=== PATIENT | male | born 1945 | race Caucasian/White ===

== ENCOUNTER 2016-12-09 11:50 | Inpatient (IN) | payer OTHER, MEDICAID ==
[2016-12-09] MEDS ORDERED: NS 1,000 ML IV ONE (12:10)
--- NOTE | 2016-12-09 12:12 | EDPHY ---
H & P Time Seen by Provider: 12/09/16 12:07 HPI/ROS: CHIEF COMPLAINT: Altered mental status, hyponatremia HISTORY OF PRESENT ILLNESS: 71-year-old male with a history of autoimmune LG1- 1 encephalitis presents with altered mental status and hyponatremia. He has been losing his balance more often recently. He has fallen multiple times in the past few days but denies significant injuries from these falls. He is also more confused than usual, so laboratory tests were ordered for this morning. Serum sodium level was 116. He has been drinking 4x32oz bottles of water daily for quite some time. He was diagnosed with autoimmune encephalitis in April 2016 and received plasmapheresis. He was much better after plasmapheresis and has been doing fairly well overall. He denies headache, dizziness, weakness, chest pain, neck pain, or other complaints. 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 Social History: Lives at [facility]. Smoking Status: Former smoker Physical Exam: General Appearance: Alert, nontoxic-appearing Eyes: Pupils equal and round, no conjunctival pallor or injection ENT, Mouth: Mucous membranes moist Neck: Normal inspection Respiratory: Lungs are clear to auscultation Cardiovascular: Regular rate and rhythm Gastrointestinal: Abdomen is soft and non-tender Neurological: Alert, moves all extremities, nonfocal exam Skin: Warm and dry Extremities: ecchymosis on left forearm, abrasions on left upper arm and shoulder, abrasions over both knees Psychiatric: Flat affect Constitutional: Initial Vital Signs Temperature (C) 36.9 C 12/09/16 11:50 Heart Rate 75 12/09/16 11:50 Respiratory Rate 18 12/09/16 11:50 Blood Pressure 171/110 H 12/09/16 11:50 O2 Sat (%) 94 12/09/16 11:50 O2 Delivery Mode Room Air Allergies/Adverse Reactions: chlorhexidine Allergy (Verified 04/18/16 16:31) Home Medications: Medication Instructions Recorded Gabapentin [Neurontin 300 MG (*)] 300 mg PO BID 04/18/16 Phenytoin Sodium Extended 300 mg PO HS 04/18/16 [Dilantin (*)] Tamsulosin HCl [Flomax 0.4 MG (*)] 0.4 mg PO HS 04/18/16 Cyanocobalamin [Vitamin B12 (*)] 1,000 mcg PO DAILY #0 tab 04/29/16 Docusate Sodium [Colace 100 MG (*)] 100 mg PO BID PRN 12/09/16 Lacosamide [Vimpat] 100 mg PO BID 12/09/16 Sodium Chloride [Salt Tablet] 2,000 mg PO TIDMEAL 12/09/16 Medical Decision Making ED Course/Re-evaluation: I received a phone call from Dr. Chris Cedeno prior to this patient's arrival. Plan is to admit the patient for plasmapheresis. Laboratory studies reveal severe hyponatremia. No IV fluids given in the emergency department. The patient's neurologic exam remained unchanged throughout his emergency department stay. 1224: Consulted with Diana De La Rosa, hospitalist. She accepts admission for Dr. Au to SDU. Differential Diagnosis: Differential diagnosis includes does is not limited to CVA/TIA, dehydration, seizure, hypoglycemia, infection. - Data Points Medications Given: Discontinued Medications Sodium Chloride (Ns) 1,000 mls @ 0 mls/hr IV ONCE ONE PRN Reason: Wide Open Stop: 12/09/16 12:11 Last Admin: 12/09/16 12:24 Dose: 1,000 mls Sodium Chloride (Sodium Chloride 3%) 500 mls @ 50 mls/hr IV CONT GUILLERMO Stop: 06/07/17 16:59 Last Admin: 12/10/16 04:36 Dose: 500 mls Departure - Departure Disposition: [facility] Inpatient Acute Clinical Impression: Hyponatremia Altered mental status Qualifiers: Altered mental status type: unspecified Qualified Code(s): R41.82 - Altered mental status, unspecified Condition: Fair Report Scribed for: Annabelle Thomas Report Scribed by: Ilya Alvares Date of Report: 12/09/16 Time of Report: 12:17 Physician Review and Approval Statement: 12/09/16 12:17 Portions of this note were transcribed by a medical writer. I personally performed a history, physical exam, medical decision making, and confirmed accuracy of information the transcribed note.
[2016-12-09 12:35] LABS: ANION GAP 9 mEq/L (8-16); CALCIUM 8.8 mg/dL (8.5-10.4); CARBON DIOXIDE 22 mEq/l (22-31); CHLORIDE 84 mEq/L (97-110); CREATININE 0.7 mg/dL (0.7-1.3); GLOMERULAR FILTRATION RATE > 60; GLUCOSE 95 mg/dL (70-100); POTASSIUM 4.9 mEq/L (3.5-5.2)
[2016-12-09 12:41] LABS: SODIUM 115 mEq/L (134-144)
[2016-12-09 13:14] LABS: HEMATOCRIT 36.4 % (40.0-51.0); HEMOGLOBIN 14.7 g/dL (13.7-17.5); MEAN CELL HEMOGLOBIN 34.9 pg (27.9-34.1); MEAN CELL VOLUME 86.5 fL (81.5-99.8); MEAN PLATELET VOLUME 8.9 fL (8.7-11.7); PLATELET COUNT 211 10^3/uL (150-400); RED BLOOD CELL COUNT 4.21 10^6/uL (4.40-6.38)
[2016-12-09 13:15] LABS: ABSOLUTE IMMATURE GRANULOCYTES 0.11 10^3/uL (0.00-0.10); ADD DIFF? NO; MEAN CELL HEMOGLOBIN CONCENTR. 40.4 g/dL (32.4-36.7)
[2016-12-09 13:16] LABS: ADD MORPH? YES; ADD SCAN? NO
--- NOTE | 2016-12-09 13:46 | CPEKG ---
Heart Rate: 82 RR Interval: 732 P-R Interval: 192 QRSD Interval: 98 QT Interval: 392 QTC Interval: 458 P [place]: 34 QRS [place]: -59 T Wave [place]: 54 EKG Severity - ABNORMAL ECG - EKG Impression: SINUS RHYTHM EKG Impression: LEFT ANTERIOR FASCICULAR BLOCK Electronically Signed By: Annabelle Thomas 09-Dec-2016 15:25:14
[2016-12-09 13:47] LABS: MACROCYTES 1+; POLYCHROMASIA 1+
[2016-12-09 13:48] LABS: PLATELET ESTIMATE ADEQUATE (ADEQ)
[2016-12-09] MEDS ORDERED: DOCUSATE SODIUM 100 MG CAP PO PRN (15:14)
[2016-12-09 16:21] LABS: ANION GAP 8 mEq/L (8-16); CALCIUM 8.4 mg/dL (8.5-10.4); CARBON DIOXIDE 22 mEq/l (22-31); CHLORIDE 83 mEq/L (97-110); CREATININE 0.6 mg/dL (0.7-1.3); GLOMERULAR FILTRATION RATE > 60; GLUCOSE 90 mg/dL (70-100); POTASSIUM 4.6 mEq/L (3.5-5.2)
[2016-12-09 16:34] LABS: SODIUM 113 mEq/L (134-144)
[2016-12-09] MEDS: SODIUM CHLORIDE 1,000 MG TAB PO SCH (17:04)
[2016-12-09] MEDS ORDERED: ALTEPLASE 2 MG VIAL IVP PRN (17:05)
--- NOTE | 2016-12-09 17:11 | PDGENHP ---
History and Physical History and Physical: HISTORY AND PHYSICAL CC:Confusion and loss of balance HISTORY: I am getting the patient's history from the patient himself and he does have some degree of confusion and so there may be some limitations in the accuracy. I am also getting some of the history through the ER staff who spoke with the patient's . This patient is brought into the hospital from [facility] today because of confusion and gait instability and balance issues with falls. These are actually somewhat chronic symptoms for him as best I can understand he has had problems with these for approximately year and half. However the have become much more prominent recently. 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 As the patient had been having increasing symptoms his spoke with Dr. Cedeno who was considering transferring the patient down to the [facility] for further plasmapheresis therapy. However simultaneously the patient had some blood tests drawn at the nursing facility and came back with a sodium of 116. it is reported to me that he most recently had a sodium of 132 sometime during October but I do not have any confirmation of this or the date. The patient denies any headaches. Tells me that he has been having a lot of balance issues where he suddenly falls. He does not recall when he last had any seizures but thinks he may have had 1 a month or 2 ago. He does mention that he thinks he may have been more confused recently than he usually is. He is unable to give me details around this issue. He does tell me that he is quite aware that he is only supposed to drink about a qt of water daily but he drinks at least 2-3 quarts that he is aware of. He does not endorse any excessive thirst or polyuria. ROS: A comprehensive 10 system review revealed no other significant findings PAST MEDICAL HISTORY: Seizure disorder on antiepileptic medicines Autoimmune encephalitis Hyponatremia, previously diagnosed as SIADH closed head injuries related to falls from balance and seizure issues FAMILY MEDICAL HISTORY: Patient is unaware of any significant medical illnesses in the family SOCIAL HISTORY: but the patient is currently living at local nursing facility MEDICATIONS: The patients list has been reconciled by our clinical pharmacist in the EMR. I have reviewed the list and ordered appropriate medicines. PHYSICAL EXAMINATION: Vital Signs: initially some systolic hypertension that is spontaneously resolved here, otherwise stable without fever Grain Loader: sinus rhythm Examination: General: alert, relaxed, talkative Neurologic: he has normal attention span and normal affect, is oriented to person place situation day date month and here. He clearly however has some memory issues around certain parts of his medical condition. 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 Upon arrival to the ICU I had this rechecked and is now at 1:13 a.m., he had received 1 L of normal saline in the ER in between. Urine sodium 16 Normal renal function RADIOLOGY STUDIES: none so far 12 LEAD EKG DONE IN THE ER, my review of the tracing interpretation: Sinus rhythm with left anterior fascicular block ASSESSMENT: -SEVERE HYPONATREMIA - currently low urine sodium argues strongly against SIADH as a cause. I suspect that it is due to a combination of poor intake of salt as well as excessive water intake. I suspect that he has been taking in more water than he tells me of. It also sounds like he does not eat a very healthy diet and probably has poor salt intake in his diet. He is prescribed 2 g sodium tablets 4 times daily, but I wonder if he is taking these. His mentions that she found 1 his Vimpat tablets on the floor this morning -GAIT INSTABILITY, DISEQUILIBRIUM AND FALLS WITHOUT APPARENT SERIES INJURY -AUTOIMMUNE ENCEPHALOPATHY AND HISTORY OF SEIZURE DISORDER ON MEDICINES - MODERATE DVT RISK PLANS: - at this point with his sodium falling after some normal saline and with a low urine sodium level will add some 3% saline in IV which will require a PICC line -Oral fluid restriction -Continue his oral sodium supplement -Will need close monitoring of the serum sodium with goal rate no more than 10 per 24 hour increase in sodium -Continue his usual seizure medicines -Fall risk precautions -He will need much closer supervision in the outpatient setting in the future with close monitoring of sodium I have reviewed the patient's case in detail with Dr. Chris Cedeno I have reviewed the patient's past medical records as part of this assessment, including previous hospital admission records and laboratory data
[2016-12-09] MEDS ORDERED: ACETAMINOPHEN 325 MG TAB PO PRN (17:26)
[2016-12-09] MEDS ORDERED: ZOLPIDEM TARTRATE 5 MG TAB PO PRN (17:26)
[2016-12-09] MEDS ORDERED: ONDANSETRON 4 MG/2 ML VIAL IVP PRN (17:26)
[2016-12-09] MEDS: SODIUM Cl 3% 500 ML IV SCH (18:02)
[2016-12-09] MEDS: TAMSULOSIN HCL 0.4 MG CAP PO SCH (20:30)
[2016-12-09] MEDS: LACOSAMIDE 50 MG TAB PO SCH (20:30)
[2016-12-09] MEDS: PHENYTOIN SODIUM EXTENDED 100 MG CAP PO SCH (20:30)
[2016-12-09] MEDS: GABAPENTIN 300 MG CAP PO SCH (20:30)
[2016-12-09] MEDS ORDERED: NON-FORMULARY NEW DRUG (Lacosamide [Vimpat] 100 MG) PO SCH (21:00)
[2016-12-09 21:30] LABS: ANION GAP 5 mEq/L (8-16); CALCIUM 8.1 mg/dL (8.5-10.4); CARBON DIOXIDE 24 mEq/l (22-31); CHLORIDE 86 mEq/L (97-110); CREATININE 0.6 mg/dL (0.7-1.3); GLOMERULAR FILTRATION RATE > 60; GLUCOSE 116 mg/dL (70-100); POTASSIUM 4.3 mEq/L (3.5-5.2)
[2016-12-09 21:38] LABS: SODIUM 115 mEq/L (134-144)
[2016-12-10 01:11] LABS: ANION GAP 4 mEq/L (8-16); CARBON DIOXIDE 24 mEq/l (22-31); CHLORIDE 91 mEq/L (97-110); CREATININE 0.6 mg/dL (0.7-1.3); GLOMERULAR FILTRATION RATE > 60; GLUCOSE 95 mg/dL (70-100); POTASSIUM 4.4 mEq/L (3.5-5.2)
[2016-12-10 01:14] LABS: SODIUM 119 mEq/L (134-144)
[2016-12-10] MEDS: SODIUM Cl 3% 500 ML IV SCH (04:36)
[2016-12-10 05:01] LABS: ANION GAP 4 mEq/L (8-16); CALCIUM 7.9 mg/dL (8.5-10.4); CARBON DIOXIDE 25 mEq/l (22-31); CHLORIDE 92 mEq/L (97-110); CREATININE 0.6 mg/dL (0.7-1.3); GLOMERULAR FILTRATION RATE > 60; GLUCOSE 90 mg/dL (70-100); POTASSIUM 4.1 mEq/L (3.5-5.2); SODIUM 121 mEq/L (134-144)
[2016-12-10] MEDS: GABAPENTIN 300 MG CAP PO SCH ×2 (08:04→20:48)
[2016-12-10] MEDS: SODIUM CHLORIDE 1,000 MG TAB PO SCH ×3 (08:04→18:23)
[2016-12-10] MEDS: CYANO/VITAMIN B12 1000 MCG TAB PO SCH (08:04)
[2016-12-10] MEDS: LACOSAMIDE 50 MG TAB PO SCH ×2 (08:04→20:48)
[2016-12-10] MEDS: ENOXAPARIN 40 MG/0.4 ML SYR SC SCH (08:05)
[2016-12-10 09:06] LABS: ANION GAP 6 mEq/L (8-16); CALCIUM 8.1 mg/dL (8.5-10.4); CARBON DIOXIDE 25 mEq/l (22-31); CHLORIDE 92 mEq/L (97-110); CREATININE 0.5 mg/dL (0.7-1.3); GLOMERULAR FILTRATION RATE > 60; GLUCOSE 86 mg/dL (70-100); POTASSIUM 4.5 mEq/L (3.5-5.2); SODIUM 123 mEq/L (134-144)
--- NOTE | 2016-12-10 10:27 | HOSPPROG ---
Hospitalist Progress Note Assessment/Plan: DIAGNOSES: -SEVERE HYPONATREMIA - currently low urine sodium argues strongly against SIADH as a cause. I suspect that it is due to a combination of poor intake of salt as well as excessive water intake. I suspect that he has been taking in more water than he tells me of. It also sounds like he does not eat a very healthy diet and probably has poor salt intake in his diet. He is prescribed 2 g sodium tablets 4 times daily, but I wonder if he is taking these. His mentions that she found 1 his Vimpat tablets on the floor this morning -GAIT INSTABILITY, DISEQUILIBRIUM AND FALLS WITHOUT APPARENT SERIES INJURY -AUTOIMMUNE ENCEPHALOPATHY AND HISTORY OF SEIZURE DISORDER ON MEDICINES -MODERATE DVT RISK -L HIP PAIN AFTER FALL Overall appearing stable, with nothing to suggest demyelinating syndrome or other acute neurologic injury His Na rise is appropriate over the first nearly 24 hours, but will slow down replacement at this time and continue to follow very closely Need to eval L hip pain though doubt fx Seen on multidisc rounds Reviewed in detail with Dr Lowry today PLANS: -stop hypertonic saline now -continue oral Na replacement and oral fluid restriction -continue q 4 hr Na checks for the moment, can likely decrease later today -xrays of L hip -fall risk precautions -DVT proph -OT PT -he will need better supervision of oral fluid intake out of hospital SUBJECTIVE: little change in symptoms though feels he may be a bit clearer in thinking does mention he has some L hip pain with movement today there have been no seizures noted 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, 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 Exam: alert, at his baseline mentation and interactions, speech; no focal motor changes skin warm dry color ok resps not labored lungs clear BSs heart regular abd soft nondistended nontender, bowel sounds present limbs warm, no edema iv site ok Lab: Na up to 123 from low of 113 Objective: Vital Signs Temp Pulse Resp BP Pulse Ox 36.4 C 87 18 118/60 92 12/10/16 08:00 12/10/16 10:00 12/10/16 10:00 12/10/16 10:00 12/10/16 10:00 Laboratory Results 12/09/16 Unknown 12/10/16 08:01 12/09/16 12/10/16 12/11/16 06:59 06:59 06:59 Intake Total 1216 Output Total 1150 Balance 66 ICD10 Worksheet Patient Problems: Problems Problem Status Onset Altered mental status Acute Hyponatremia Acute Hyponatremia Acute Seizure disorder Acute
[2016-12-10 12:43] LABS: ANION GAP 4 mEq/L (8-16); CARBON DIOXIDE 25 mEq/l (22-31); CHLORIDE 95 mEq/L (97-110); CREATININE 0.6 mg/dL (0.7-1.3); GLOMERULAR FILTRATION RATE > 60; GLUCOSE 99 mg/dL (70-100); POTASSIUM 4.9 mEq/L (3.5-5.2); SODIUM 124 mEq/L (134-144)
[2016-12-10 17:02] LABS: ANION GAP 4 mEq/L (8-16); CARBON DIOXIDE 27 mEq/l (22-31); CHLORIDE 94 mEq/L (97-110); CREATININE 0.5 mg/dL (0.7-1.3); GLOMERULAR FILTRATION RATE > 60; GLUCOSE 82 mg/dL (70-100); POTASSIUM 4.4 mEq/L (3.5-5.2); SODIUM 125 mEq/L (134-144)
[2016-12-10 20:18] LABS: ANION GAP 4 mEq/L (8-16); CALCIUM 8.1 mg/dL (8.5-10.4); CARBON DIOXIDE 26 mEq/l (22-31); CHLORIDE 95 mEq/L (97-110); CREATININE 0.5 mg/dL (0.7-1.3); GLOMERULAR FILTRATION RATE > 60; GLUCOSE 135 mg/dL (70-100); POTASSIUM 4.5 mEq/L (3.5-5.2); SODIUM 125 mEq/L (134-144)
[2016-12-10] MEDS: PHENYTOIN SODIUM EXTENDED 100 MG CAP PO SCH (20:48)
[2016-12-10] MEDS: TAMSULOSIN HCL 0.4 MG CAP PO SCH (20:48)
[2016-12-11 04:25] LABS: ANION GAP 5 mEq/L (8-16); CALCIUM 8.2 mg/dL (8.5-10.4); CARBON DIOXIDE 26 mEq/l (22-31); CHLORIDE 97 mEq/L (97-110); CREATININE 0.5 mg/dL (0.7-1.3); GLOMERULAR FILTRATION RATE > 60; GLUCOSE 72 mg/dL (70-100); POTASSIUM 4.4 mEq/L (3.5-5.2); SODIUM 128 mEq/L (134-144)
[2016-12-11] MEDS: SODIUM CHLORIDE 1,000 MG TAB PO SCH ×3 (08:38→18:01)
[2016-12-11] MEDS: CYANO/VITAMIN B12 1000 MCG TAB PO SCH (08:38)
[2016-12-11] MEDS: LACOSAMIDE 50 MG TAB PO SCH ×2 (08:39→21:53)
[2016-12-11] MEDS: ENOXAPARIN 40 MG/0.4 ML SYR SC SCH (08:39)
[2016-12-11] MEDS: GABAPENTIN 300 MG CAP PO SCH ×2 (08:39→21:53)
--- NOTE | 2016-12-11 09:50 | HOSPPROG ---
Hospitalist Progress Note Assessment/Plan: DIAGNOSES: -SEVERE HYPONATREMIA - currently low urine sodium argues strongly against SIADH as a cause. I suspect that it is due to a combination of poor intake of salt as well as excessive water intake. I suspect that he has been taking in more water than he tells me of. It also sounds like he does not eat a very healthy diet and probably has poor salt intake in his diet. He is prescribed 2 g sodium tablets 4 times daily, but I wonder if he is taking these. His mentions that she found 1 his Vimpat tablets on the floor this morning -GAIT INSTABILITY, DISEQUILIBRIUM AND FALLS WITHOUT APPARENT SERIES INJURY -AUTOIMMUNE ENCEPHALOPATHY AND HISTORY OF SEIZURE DISORDER ON MEDICINES -MODERATE DVT RISK -L HIP PAIN AFTER FALL Na improving nicely without signs of demyelinating syndrome He remains quite debilitated by confusion and dysequilibrium and gait instability I will review with neurology. My question for neurology is what would be the indications to consider further plasmapheresis, and would that need to be done at [facility]. Apparently before the low sodium was identified Dr Cedeno was planning possible referral to that hospital for treatment. 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 Exam: alert, at his baseline mentation and interactions, speech; no focal motor changes skin warm dry color ok resps not labored lungs clear BSs heart regular abd soft nondistended nontender, bowel sounds present limbs warm, no edema iv site ok Lab: Na at 128 now Objective: Vital Signs Temp Pulse Resp BP Pulse Ox 36.3 C 63 17 133/74 H 94 12/11/16 08:00 12/11/16 08:00 12/11/16 08:00 12/11/16 08:00 12/11/16 08:00 Laboratory Results 12/09/16 Unknown 12/11/16 04:05 12/10/16 12/11/16 12/12/16 06:59 06:59 06:59 Intake Total 1216 1107 Output Total 1150 500 Balance 66 607 ICD10 Worksheet Patient Problems: Problems Problem Status Onset Altered mental status Acute Hyponatremia Acute Hyponatremia Acute Seizure disorder Acute
[2016-12-11] MEDS: PHENYTOIN SODIUM EXTENDED 100 MG CAP PO SCH (21:54)
[2016-12-11] MEDS: TAMSULOSIN HCL 0.4 MG CAP PO SCH (21:54)
[2016-12-12 03:40] VITALS: O2SAT 95
[2016-12-12 04:28] LABS: ALANINE AMINOTRANSFERASE 69 IU/L (21-72); ALBUMIN 3.2 g/dL (3.5-5.0); ALKALINE PHOSPHATASE 108 IU/L (38-126); ANION GAP 2 mEq/L (8-16); ASPARTATE AMINOTRANSFERASE 121 IU/L (17-59); BILIRUBIN,TOTAL 0.4 mg/dL (0.1-1.4); CALCIUM 8.3 mg/dL (8.5-10.4); CARBON DIOXIDE 26 mEq/l (22-31); CHLORIDE 100 mEq/L (97-110); CREATININE 0.5 mg/dL (0.7-1.3); GLOMERULAR FILTRATION RATE > 60; GLUCOSE 77 mg/dL (70-100); POTASSIUM 4.6 mEq/L (3.5-5.2); SODIUM 128 mEq/L (134-144); TOTAL PROTEIN 5.5 g/dL (6.3-8.2)
[2016-12-12] MEDS: CYANO/VITAMIN B12 1000 MCG TAB PO SCH (09:15)
[2016-12-12] MEDS: GABAPENTIN 300 MG CAP PO SCH (09:15)
[2016-12-12] MEDS: SODIUM CHLORIDE 1,000 MG TAB PO SCH ×2 (09:15→13:13)
[2016-12-12] MEDS: ENOXAPARIN 40 MG/0.4 ML SYR SC SCH (09:16)
[2016-12-12] MEDS: LACOSAMIDE 50 MG TAB PO SCH (09:16)
--- NOTE | 2016-12-12 10:12 | GCON ---
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 I spok e to his last Fidencio, and he had a series of seizures, but those have ceased, and he had very l ow sodium, which has been corrected, and he is moving much more toward his baseline. I spoke to him today, he is close to the baseline I recognize. I do not believe he needs to go into plasma exchan ge right now, and continued management of his medical problem with outpatient followup will be appro priate. I am happy to review further details regarding this case, and put in a call to his to confirm everything, but he is stable. /[id number]/MODL
--- NOTE | 2016-12-12 10:27 | PDIAF ---
- Diagnosis Diagnosis: HYPONATREMIA Code Status: Full Code - Medication Management Discharge Medications: Medications to Continue on Transfer Gabapentin [Neurontin 300 MG (*)] 300 mg PO BID 04/18/16 [Last Taken 12/09/16 08 :00] Phenytoin Sodium Extended [Dilantin (*)] 300 mg PO HS 04/18/16 [Last Taken Unknown] Tamsulosin HCl [Flomax 0.4 MG (*)] 0.4 mg PO HS 04/18/16 [Last Taken Unknown] Cyanocobalamin [Vitamin B12 (*)] 1,000 mcg PO DAILY #0 tab 04/29/16 [Last Taken 12/09/16] Docusate Sodium [Colace 100 MG (*)] 100 mg PO BID PRN 12/09/16 [Last Taken Unknown] Lacosamide [Vimpat] 100 mg PO BID 12/09/16 [Last Taken 12/09/16 08:00] Sodium Chloride [Salt Tablet] 2,000 mg PO TIDMEAL 12/09/16 [Last Taken 12/09/16 08:00] Discharge Medications: Refer to the Discharge Home Medication list for PRN reason. - Orders Services needed: Registered Nurse, Certified Ballet Professor, Master Quality Improvement Engineer Diet Recommendation: fluid restriction (use comment for amount) (1400 ml / 24 hours including ALL ORAL FLUIDS ) Diet Texture: Regular Texture Diet - Labs/Radiology BMP Date: 12/16/16 - Follow Up Care Current Providers and Referrals: Patient,NotPresent [Primary Care Provider] - As per Instructions
--- NOTE | 2016-12-12 10:35 | PDDCSUM ---
Discharge Summary Discharge Summary: DISCHARGE DIAGNOSES: -ACUTE ON CHRONIC SEVERE HYPONATREMIA, SYMPTOMATIC -MULTIPLE FALLS, CHRONIC GAIT INSTABILITY -ACUTE ON CHRONIC ENCEPHALOPATHY, MULTIFACTORIAL -CHRONIC AUTOIMMUNE ENCEPHALITIS, STABLE CONSULTANTS: [facility] HOSPITAL COURSE SUMMARY: This patient has a long history of autoimmune its encephalopathy and associated hyponatremia. He has been managed on oral fluid restriction with a total of 8 g of oral sodium supplements daily. He had a sodium checked in the low 130s in October of this year but this time came into the hospital because of worsening symptoms with his chronic confusion and disequilibrium. He was found have a sodium of 115 which actually decreased to 113 after he had been given some saline in the ER. He was admitted to intensive care unit. He had close monitoring of his glucose initially treated with some hypertonic saline and then switch back to his oral supplements. He was treated with oral fluid restriction of 1 L daily here. The patient did well with appropriate rise of sodium level and we have now up to 128. There has been no signs of demyelinating syndrome or other complications. He appears back to baseline with his neurologic examination and function as assessed by Dr. Cedeno who knows him well. At this point the patient is stable for transfer back to the nursing facility where he lives. He will need however better supervision regarding his oral fluid intake. The patient describes to me that he knows that he is supposed to be on a restricted fluid intake but that he does not follow that restriction and drinks few L of fluid per day. I am working with our social workers to contact the folks at the nursing facility to be CC with a cane due to arrange for better 5 supervision of this. PENDING TEST RESULTS: A repeat metabolic panel is ordered to be done 4 days from now at the nursing facility MEDICATION CHANGES: None FOLLOW-UP PLAN: With his primary care physician and with Dr. Cedeno at the nursing facility Greater than 35 minutes bedside and care coordination time today
[2016-12-12 12:56] VITALS: BP 117/61; PULSE 64; RESP 16
[2016-12-12 12:59] VITALS: TEMP 97.5
[2016-12-12] MEDS ORDERED: FAMOTIDINE 20 MG/NACL 50 ML IV SCH (21:00)
== END 2016-12-12 13:23 | DRG 640 ==
LOC: EDUNIT# → F2N 14:09
PROVIDERS: ADMIT Internal Medicine; ATTEND Internal Medicine
DX: E87.1 Hypo-osmolality and hyponatremia (principal); G93.49 Other encephalopathy; G04.90 Encephalitis and encephalomyelitis, unspecified; R29.6 Repeated falls; R26.9 Unspecified abnormalities of gait and mobility; G40.909 Epilepsy, unspecified, not intractable, without status epilepticus
CPT/HCPCS: 92523-GN; 97116-GP; 97161-GP; 97165-GO; 97530-GP; 97535-GO; C1751; G8978-GP-CJ; G8979-GP-CI; G8987-GO-CL; G8988-GO-CK; G9168-GN-CJ; G9169-GN-CI; J1650

== ENCOUNTER 2017-02-07 12:08 | Emergency (ER) | payer OTHER, MEDICAID ==
[2017-02-07 12:15] VITALS: TEMP 97.9
--- NOTE | 2017-02-07 12:39 | EDPHY ---
H & P Stated Complaint: spasms, hx of low sodium, similar symptoms Time Seen by Provider: 02/07/17 12:29 HPI/ROS: CHIEF COMPLAINT: Right arm tremulous, spasms HISTORY OF PRESENT ILLNESS: This is a 71-year-old male presenting to the emergency department ambulatory with walker assist. reports she has noticed "right upper extremity spasms or tremors this morning intermittently, then patient seems like he has altered mental status but then comes back to normal" states her concern is due to his history of autoimmune encephalitis and hyponatremia, that his sodium may be low again. denies any other complaints no chest pain or shortness of breath. REVIEW OF SYSTEMS: Constitutional: No fever, no chills. Eyes: No discharge. no blurred vision ENT: No sore throat. Cardiovascular: No chest pain, no palpitations. Respiratory: No cough, no shortness of breath. Gastrointestinal: No abdominal pain, no vomiting. Genitourinary: No hematuria. Musculoskeletal: No back pain. intermittent right arm tremors Skin: No rashes. Neurological: No headache. Source: Patient, Family, Old records - Personal History Current Tetanus/Diphtheria Vaccine: Unsure Current Tetanus Diphtheria and Acellular Pertussis (TDAP): Unsure Tetanus Vaccine Date: < 10 years - Medical/Surgical History Hx Asthma: No Hx Chronic Respiratory Disease: No Hx Diabetes: No Hx Cardiac Disease: No Hx Renal Disease: No Hx Cirrhosis: No Hx Alcoholism: No Hx HIV/AIDS: No Hx Splenectomy or Spleen Trauma: No Other PMH: seizures , appendectomy, limbic encephalitis,orthostatic hypotension, pneumonitis,lasik surgery left eye , cataracts now left eye, cataract removed R eye, hyponatremia - Social History Smoking Status: Former smoker - Physical Exam Exam: General Appearance: Alert, no distress. Eyes: Pupils equal and round no pallor or injection. ENT, Mouth: Mucous membranes moist. Respiratory: There are no retractions, lungs are clear to auscultation. Cardiovascular: Regular rate and rhythm. Gastrointestinal: Abdomen is soft and nontender, no masses, bowel sounds normal. Neurological: No focal deficits, answering questions appropriately. no seizure or fasciculations noted. ambulatory with steady gait Skin: Warm and dry, no rashes. healing abrasions to bilateral knees dressings intact Musculoskeletal: Neck is supple nontender. Extremities: symmetrical, full range of motion. healing abrasions to bilateral knees dressings intact Psychiatric: Patient is oriented X 3, there is no agitation. patient acting appropriately Constitutional: Initial Vital Signs Temperature (C) 36.6 C 02/07/17 12:13 Heart Rate 78 02/07/17 12:13 Respiratory Rate 16 02/07/17 12:13 Blood Pressure 148/101 H 02/07/17 12:13 O2 Sat (%) 95 02/07/17 12:13 O2 Delivery Mode Room Air Allergies/Adverse Reactions: chlorhexidine Allergy (Verified 02/07/17 12:12) Home Medications: Medication Instructions Recorded Phenytoin Sodium Extended 300 mg PO HS 04/18/16 [Dilantin (*)] Tamsulosin HCl [Flomax 0.4 MG (*)] 0.4 mg PO HS 04/18/16 Cyanocobalamin [Vitamin B12 (*)] 1,000 mcg PO DAILY #0 tab 04/29/16 Lacosamide [Vimpat] 100 mg PO BID 12/09/16 Sodium Chloride [Salt Tablet] 2,000 mg PO TIDMEAL 12/09/16 Medical Decision Making - Diagnostics Imaging Results: Imaging Impressions Head CT 02/07/17 13:07 Impression: 1. Mild atrophy. 2. No acute hemorrhage, hydrocephalus, or mass effect. 3. Cerebrovascular atherosclerosis. 4. No definite acute infarct. 5. Moderate microvascular ischemic gliosis. 6. Consider MRI of the brain without and with contrast enhancement, if there is continued clinical concern. Findings and recommendations discussed with Emergency Department physician, Jerri Brito NP at 1350 hour, 02/07/2017. Final report concurs with initial preliminary interpretation. ED Course/Re-evaluation: Discussed ED plan of care with patient and : CBC, CMP,, Dilantin level,, CT head 1345: spoke with Dr. Medrano CT head negative for any subarachnoid hemorrhage, thrombus 1400: No apparent distress, no focal deficits, no seizure activity, patient acting appropriately. Discussed plan of IV Dilantin a 1000 mg in [place] home. will call Dr. Cedeno in the morning for follow-up appointment. 1605: Discharge home--> stable, AAO x3, no focal deficits, no seizure activity, ambulatory with walker assist. discussed all discharge instructions with patient and Differential Diagnosis: other differential diagnosis considered but not limited to electrolyte imbalance, subarachnoid hemorrhage, and seizure - Data Points Laboratory Results: Laboratory Results 02/07/17 12:00 02/07/17 12:00 02/07/17 02/07/17 02/07/17 12:31 12:00 12:00 WBC 9.42 10^3/uL 10^3/uL (3.80-9.50) RBC 4.95 10^6/uL 10^6/uL (4.40-6.38) Hgb 16.9 g/dL g/dL (13.7-17.5) POC Hgb 17.0 gm/dL gm/dL (13.7-17.5) Hct 46.1 % % (40.0-51.0) POC Hct 50 % % (40-51) MCV 93.1 fL fL (81.5-99.8) MCH 34.1 pg pg (27.9-34.1) MCHC 36.7 g/dL g/dL (32.4-36.7) RDW 12.0 % % (11.5-15.2) Plt Count 202 10^3/uL 10^3/uL (150-400) MPV 9.0 fL fL (8.7-11.7) Neut % (Auto) 69.2 % % (39.3-74.2) Lymph % (Auto) 22.1 % % (15.0-45.0) Allen % (Auto) 7.1 % % (4.5-13.0) Eos % (Auto) 0.8 % % (0.6-7.6) Baso % (Auto) 0.4 % % (0.3-1.7) Nucleat RBC Rel Count 0.0 % % (0.0-0.2) Absolute Neuts (auto) 6.51 10^3/uL H 10^3/uL (1.70-6.50) Absolute Lymphs (auto) 2.08 10^3/uL 10^3/uL (1.00-3.00) Absolute Monos (auto) 0.67 10^3/uL 10^3/uL (0.30-0.80) Absolute Eos (auto) 0.08 10^3/uL 10^3/uL (0.03-0.40) Absolute Basos (auto) 0.04 10^3/uL 10^3/uL (0.02-0.10) Absolute Nucleated RBC 0.00 10^3/uL 10^3/uL (0-0.01) Immature Gran % 0.4 % % (0.0-1.1) Immature Gran # 0.04 10^3/uL 10^3/uL (0.00-0.10) POC Sodium 134 mEq/L mEq/L (134-144) Sodium 135 mEq/L mEq/L (134-144) POC Potassium 4.1 mEq/L mEq/L (3.3-5.0) Potassium 4.3 mEq/L mEq/L (3.5-5.2) POC Chloride 97 mEq/L mEq/L (97-110) Chloride 103 mEq/L mEq/L (97-110) Carbon Dioxide 21 mEq/l L mEq/l (22-31) Anion Gap 11 mEq/L mEq/L (8-16) POC BUN 10 mg/dL mg/dL (7-23) BUN 11 mg/dL mg/dL (7-23) Creatinine 0.6 mg/dL L mg/dL (0.7-1.3) POC Creatinine 0.7 mg/dL mg/dL (0.7-1.3) Estimated GFR > 60 Glucose 98 mg/dL mg/dL (70-100) POC Glucose 101 mg/dL H mg/dL (70-100) Calcium 9.1 mg/dL mg/dL (8.5-10.4) Total Bilirubin 0.8 mg/dL mg/dL (0.1-1.4) AST 34 IU/L IU/L (17-59) ALT 65 IU/L IU/L (21-72) Alkaline Phosphatase 128 IU/L H IU/L (38-126) Total Protein 7.3 g/dL g/dL (6.3-8.2) Albumin 4.6 g/dL g/dL (3.5-5.0) Phenytoin 6.8 mcg/mL L mcg/mL (10.0-20.0) Medications Given: Discontinued Medications Phenytoin Sodium 1,000 mg/ (Sodium Chloride) 120 mls @ 144 mls/hr IV ONCE ONE Stop: 02/07/17 14:48 Last Admin: 02/07/17 14:43 Dose: 120 mls Point of Care Test Results: 02/07/17 12:31 POC Sodium 134 POC Potassium 4.1 POC Chloride 97 POC BUN 10 POC Creatinine 0.7 POC Glucose 101 H Departure - Departure Disposition: Home, Routine, Self-Care Clinical Impression: Pseudoseizure, Subtherapeutic serum dilantin level Condition: Good Instructions: Recurrent Seizures in Adults (ED) Additional Instructions: 1. Your given a Dilantin load IV a 1000 mg today. Dilantin levels were low 2. follow up with Dr. Cedeno tomorrow, your Dilantin medication dosages may need to be increased. 3. if at any point time patient starts having any new seizure altered mental status return to the emergency department Referrals: Ny Enamorado MD [Primary Care Provider] - As per Instructions Chris Cedeno MD [Medical Doctor] - As per Instructions
[2017-02-07 12:41] LABS: % IMMATURE GRANULYOCYTES 0.4 % (0.0-1.1); ABSOLUTE IMMATURE GRANULOCYTES 0.04 10^3/uL (0.00-0.10); ADD DIFF? NO; ADD MORPH? NO; ADD SCAN? NO; ATYPICAL LYMPHOCYTE FLAG 10 (0-99); FRAGMENT RBC FLAG 0 (0-99); HEMATOCRIT 46.1 % (40.0-51.0); HEMOGLOBIN 16.9 g/dL (13.7-17.5); LEFT SHIFT FLG 0 (0-99); LIPEMIA HEMOLYSIS FLAG 90 (0-99); MEAN CELL HEMOGLOBIN 34.1 pg (27.9-34.1); MEAN CELL HEMOGLOBIN CONCENTR. 36.7 g/dL (32.4-36.7); MEAN CELL VOLUME 93.1 fL (81.5-99.8); PLATELET CLUMPS FLAG 20 (0-99); PLATELET COUNT 202 10^3/uL (150-400); RED BLOOD CELL COUNT 4.95 10^6/uL (4.40-6.38)
[2017-02-07 12:53] LABS: ALANINE AMINOTRANSFERASE 65 IU/L (21-72); ALBUMIN 4.6 g/dL (3.5-5.0); ALKALINE PHOSPHATASE 128 IU/L (38-126); ANION GAP 11 mEq/L (8-16); ASPARTATE AMINOTRANSFERASE 34 IU/L (17-59); BILIRUBIN,TOTAL 0.8 mg/dL (0.1-1.4); CALCIUM 9.1 mg/dL (8.5-10.4); CARBON DIOXIDE 21 mEq/l (22-31); CHLORIDE 103 mEq/L (97-110); CREATININE 0.6 mg/dL (0.7-1.3); GLOMERULAR FILTRATION RATE > 60; GLUCOSE 98 mg/dL (70-100); POTASSIUM 4.3 mEq/L (3.5-5.2); SODIUM 135 mEq/L (134-144); TOTAL PROTEIN 7.3 g/dL (6.3-8.2)
--- NOTE | 2017-02-07 13:14 | CPEKG ---
Heart Rate: 76 RR Interval: 789 P-R Interval: 188 QRSD Interval: 98 QT Interval: 396 QTC Interval: 446 P [place]: 20 QRS [place]: -47 T Wave [place]: 44 EKG Severity - ABNORMAL ECG - EKG Impression: SINUS RHYTHM EKG Impression: LEFT ANTERIOR FASCICULAR BLOCK Electronically Signed By: Annabelle Thomas 07-Feb-2017 15:14:26
[2017-02-07] MEDS ORDERED: PHENYTOIN SODIUM 1,000 MG in NS 100 ML IV ONE (13:59)
[2017-02-07 16:17] VITALS: BP 119/92; PULSE 85; RESP 16; O2SAT 100
== END 2017-02-07 16:17 | disposition home or self-care (01) ==
DX: F44.5 Conversion disorder with seizures or convulsions (principal); R79.1 Abnormal coagulation profile; Z87.891 Personal history of nicotine dependence
CPT/HCPCS: 82947-QW; 96365

== ENCOUNTER 2017-02-16 11:49 | Emergency (ER) | payer OTHER, MEDICAID ==
[2017-02-16] MEDS ORDERED: NS 500 ML IV ONE (12:22)
[2017-02-16 12:31] VITALS: RESP 16
[2017-02-16 12:47] LABS: % IMMATURE GRANULYOCYTES 0.4 % (0.0-1.1); ABSOLUTE IMMATURE GRANULOCYTES 0.03 10^3/uL (0.00-0.10); ADD DIFF? NO; ADD MORPH? NO; ADD SCAN? NO; ATYPICAL LYMPHOCYTE FLAG 0 (0-99); FRAGMENT RBC FLAG 0 (0-99); HEMATOCRIT 44.6 % (40.0-51.0); HEMOGLOBIN 16.1 g/dL (13.7-17.5); LEFT SHIFT FLG 0 (0-99); LIPEMIA HEMOLYSIS FLAG 90 (0-99); MEAN CELL HEMOGLOBIN CONCENTR. 36.1 g/dL (32.4-36.7); MEAN CELL VOLUME 94.1 fL (81.5-99.8); MEAN PLATELET VOLUME 9.1 fL (8.7-11.7); PLATELET CLUMPS FLAG 20 (0-99); PLATELET COUNT 193 10^3/uL (150-400); RED BLOOD CELL COUNT 4.74 10^6/uL (4.40-6.38); RED CELL DISTRIBUTION WIDTH 11.6 % (11.5-15.2)
--- NOTE | 2017-02-16 13:15 | EDPHY ---
H & P Time Seen by Provider: 02/16/17 12:10 HPI/ROS: HPI Seizure disorder. 71-year-old male by private vehicle with his . 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 He currently sees Dr. Chris Cedeno for this disorder. Secondary to this disorder he has seizures. He was seen on February 07 secondary to an increase in seizure activity by Dr. Chris Cedeno. He had a Dilantin level measured at that time. This was low. He was given a bolus dose of a 1000 mg of Dilantin. These seizures resolved. The seizures are described as a sudden jerking movement of his right arm and altered mental status. They last seconds according to his . Since last night these seizures have returned. He has had them intermittently over the last 12-[address] Chris Cedeno is currently away and due to return on Monday. His was instructed to bring him in should he have continued seizures to have his Dilantin checked in his sodium checked. He has also had seizure secondary to hyponatremia in the past. The patient denies any other complaints. ROS: Constitutional: No fever, no chills. No weakness. Eyes: No discharge. No changes in vision. ENT: No sore throat. No nasal congestion or rhinorrhea. Respiratory: No cough. No shortness of breath. Cardiac: No chest pain, no palpitations. Gastrointestinal: No abdominal pain, no vomiting, no diarrhea. Genitourinary: No hematuria. No dysuria or increased frequency with urination. Musculoskeletal: No back pain. No neck pain. No myalgias or arthralgias. Skin: No rashes. Neurological: No headache. No focal weakness or altered sensation. As above. Past medical history: As above and also includes appendectomy, orthostatic hypotension, pneumonitis, cataracts, hyponatremia. Social history: Here with his . He ambulates with a walker. No alcohol. Physical Exam: General Appearance: Alert, no distress. This patient is responding to questions appropriately and in full sentences. This patient appears well- hydrated and well-nourished. Eyes: Pupils equal and round no pallor or injection. No lid edema, erythema or injection. ENT, Mouth: Mucous membranes are moist. The pharyngeal tissues are unremarkable. No edema or swelling. No asymmetry suggestive of abscess. No erythema or exudates. No tongue lacerations or abrasions. Respiratory: There are no retractions, lungs are clear to auscultation with good air movement bilaterally. Cardiovascular: Regular rate and rhythm. No murmur. Gastrointestinal: Abdomen is soft and nontender, no masses, bowel sounds normal. No focal tenderness at McBurney's point. No Swift sign. Neurological: Motor sensory function is grossly intact. Cranial nerves are normal. Skin: Warm and dry, no rashes. Musculoskeletal: Neck is supple and nontender. No pain on flexion of the neck. Extremities are symmetrical. All joints range without pain or impingement. Psychiatric: No agitation. No depression. Database: EKG: Imaging: Procedures: Emergency department course: IV placed. Appropriate blood work ordered including a Dilantin level. 1:50 p.m., patient re-evaluated. Resting comfortably at this time. Repeat neurologic Assessment is nonfocal. Results of blood work discussed with the patient and family. They feel comfortable taking him home. They will continue his Dilantin dosing as prescribed. They will follow up with his neurologist, Dr. Chris Cedeno, on Monday for re-evaluation. Return to emergency department precautions reviewed with them. All their questions were answered. The patient was discharged in good condition. Differential Diagnosis: The differential diagnosis on this patient includes but is not limited to breakthrough seizures. Hyponatremia, hypoglycemia, meningitis, encephalitis, CVA, intracranial bleed unlikely. This represents a partial list of diagnoses considered. These considerations are based on history, physical exam, past history, reassessment and diagnostic testing. Smoking Status: Former smoker Constitutional: Initial Vital Signs Temperature (C) 36.5 C 02/16/17 11:52 Heart Rate 84 02/16/17 11:52 Respiratory Rate 18 02/16/17 11:52 Blood Pressure 148/85 H 02/16/17 11:52 O2 Sat (%) 94 02/16/17 11:52 O2 Delivery Mode Room Air Allergies/Adverse Reactions: chlorhexidine Allergy (Verified 02/16/17 11:51) Home Medications: Medication Instructions Recorded Phenytoin Sodium Extended 400 mg PO HS 04/18/16 [Dilantin (*)] Tamsulosin HCl [Flomax 0.4 MG (*)] 0.4 mg PO HS 04/18/16 Cyanocobalamin [Vitamin B12 (*)] 1,000 mcg PO DAILY #0 tab 04/29/16 Lacosamide [Vimpat] 100 mg PO BID 12/09/16 Sodium Chloride [Salt Tablet] 2,000 mg PO TIDMEAL 12/09/16 Medical Decision Making - Data Points Laboratory Results: Laboratory Results 02/16/17 12:25 02/16/17 12:25 02/16/17 02/16/17 12:25 12:25 WBC 7.78 10^3/uL 10^3/uL (3.80-9.50) RBC 4.74 10^6/uL 10^6/uL (4.40-6.38) Hgb 16.1 g/dL g/dL (13.7-17.5) Hct 44.6 % % (40.0-51.0) MCV 94.1 fL fL (81.5-99.8) MCH 34.0 pg pg (27.9-34.1) MCHC 36.1 g/dL g/dL (32.4-36.7) RDW 11.6 % % (11.5-15.2) Plt Count 193 10^3/uL 10^3/uL (150-400) MPV 9.1 fL fL (8.7-11.7) Neut % (Auto) 68.5 % % (39.3-74.2) Lymph % (Auto) 20.6 % % (15.0-45.0) [place] % (Auto) 8.6 % % (4.5-13.0) Eos % (Auto) 1.4 % % (0.6-7.6) Baso % (Auto) 0.5 % % (0.3-1.7) Nucleat RBC Rel Count 0.0 % % (0.0-0.2) Absolute Neuts (auto) 5.33 10^3/uL 10^3/uL (1.70-6.50) Absolute Lymphs (auto) 1.60 10^3/uL 10^3/uL (1.00-3.00) Absolute Monos (auto) 0.67 10^3/uL 10^3/uL (0.30-0.80) Absolute Eos (auto) 0.11 10^3/uL 10^3/uL (0.03-0.40) Absolute Basos (auto) 0.04 10^3/uL 10^3/uL (0.02-0.10) Absolute Nucleated RBC 0.00 10^3/uL 10^3/uL (0-0.01) Immature Gran % 0.4 % % (0.0-1.1) Immature Gran # 0.03 10^3/uL 10^3/uL (0.00-0.10) Sodium 133 mEq/L L mEq/L (134-144) Potassium 4.1 mEq/L mEq/L (3.5-5.2) Chloride 102 mEq/L mEq/L (97-110) Carbon Dioxide 19 mEq/l L mEq/l (22-31) Anion Gap 12 mEq/L mEq/L (8-16) BUN 12 mg/dL mg/dL (7-23) Creatinine 0.7 mg/dL mg/dL (0.7-1.3) Estimated GFR > 60 Glucose 95 mg/dL mg/dL (70-100) Calcium 9.1 mg/dL mg/dL (8.5-10.4) Phenytoin 14.8 mcg/mL mcg/mL (10.0-20.0) Medications Given: Discontinued Medications Sodium Chloride (Ns) 500 mls @ 0 mls/hr IV EDNOW ONE; Wide Open PRN Reason: Protocol Stop: 02/16/17 12:23 Last Admin: 02/16/17 12:33 Dose: 500 mls Departure - Departure Disposition: Home, Routine, Self-Care Clinical Impression: Breakthrough seizure Condition: Good Instructions: Recurrent Seizures in Adults (ED) Additional Instructions: Read and follow provided instructions. Follow-up with your neurologist, Dr. Chris Cedeno, on Monday as discussed for re-evaluation and further management. Continue Dilantin as prescribed. Return to the emergency department for worsening symptoms or other serious concerns. Referrals: Chris Cedeno MD [Medical Doctor] - As per Instructions
[2017-02-16 13:24] LABS: ANION GAP 12 mEq/L (8-16); CALCIUM 9.1 mg/dL (8.5-10.4); CARBON DIOXIDE 19 mEq/l (22-31); CHLORIDE 102 mEq/L (97-110); CREATININE 0.7 mg/dL (0.7-1.3); GLOMERULAR FILTRATION RATE > 60; GLUCOSE 95 mg/dL (70-100); POTASSIUM 4.1 mEq/L (3.5-5.2); SODIUM 133 mEq/L (134-144)
[2017-02-16 14:11] VITALS: BP 140/99; PULSE 81; TEMP 98.2; O2SAT 94
== END 2017-02-16 14:10 | disposition home or self-care (01) ==
DX: G40.909 Epilepsy, unspecified, not intractable, without status epilepticus (principal); E86.9 Volume depletion, unspecified; Z87.891 Personal history of nicotine dependence

== ENCOUNTER → 2017-07-10 | Outpatient (CLI) | payer OTHER, MEDICAID | PROVIDERS: ATTEND Otolaryngology | DX: R13.14 Dysphagia, pharyngoesophageal phase (principal); R05 Cough; R56.9 Unspecified convulsions; Z87.01 Personal history of pneumonia (recurrent) | CPT/HCPCS: 74230; 92611; G8996; G8997; G8998 ==